=== PATIENT | male | born 1970 | race African-American/Black ===

== ENCOUNTER → 2018-11-03 | Outpatient (CLI) | payer OTHER ==
--- NOTE | 2018-11-03 09:43 | REP ---
Left elbow for views : There is no fracture or dislocation. Mineralization and joint spaces are normal. There are no calcifications or foreign bodies. Impression: Negative left elbow . Electronically Signed by Riki Almaraz MD 11/03/2018 09:34 A
== END ==
LOC: M RAD 08:58
PROVIDERS: ATTEND Surgery
DX: M25.522 Pain in left elbow (principal)

== ENCOUNTER → 2019-12-07 | Outpatient (CLI) | payer OTHER ==
--- NOTE | 2019-12-15 14:49 | REP ---
LUMBAR SPINE SERIES: 5-VIEWS HISTORY: Right flank pain. FINDINGS: Five views of the lumbar spine show preserved vertebral body heights and normal alignment. Disk spaces are maintained. Pedicles and posterior elements are intact. There is no evidence of spondylolysis or spondylolisthesis. There is minimal facet sclerosis and hypertrophy bilaterally at L5-S1. Sacrum and SI joints are intact. Psoas margins are symmetric. IMPRESSION: No acute abnormality. Mild osteoarthritic facet hypertrophy and sclerosis bilaterally at L5-S1. MTDD
--- NOTE | 2019-12-15 14:57 | REP ---
THORACIC SPINE RADIOGRAPHS: 3-VIEWS HISTORY: Right flank pain and radiculopathy. FINDINGS: Thoracic vertebral body heights are preserved. There is minimal discogenic spurring at the anterior aspect of the upper and mid thoracic spine. No fracture or collapse is seen. No bony destructive lesion is seen. Pedicles and posterior elements are intact. No paravertebral soft tissue mass is seen. IMPRESSION: Minimal discogenic spurring. Otherwise negative thoracic spine series. MTDD
--- NOTE | 2019-12-15 15:07 | REP ---
BILATERAL ANKLE SERIES: 8-VIEWS HISTORY: Bilateral pain. FINDINGS: Four views of each ankle are presented. There are Achilles calcaneal spurs bilaterally. Ankle mortise is intact. There is mild plantar calcaneal spurring on the right. No fracture or erosive changes seen on either side. Joint space is preserved. IMPRESSION: No acute bony abnormality. Calcaneal spurring noted bilaterally. MTDD
== END ==
LOC: M RAD 08:39
PROVIDERS: ATTEND Surgery
DX: M77.31 Calcaneal spur, right foot (principal); M77.32 Calcaneal spur, left foot; M47.817 Spondylosis without myelopathy or radiculopathy, lumbosacral region

== ENCOUNTER 2020-04-29 17:35 | Emergency (ER) | payer OTHER ==
--- NOTE | 2020-04-29 20:49 | REP ---
INDICATION: SOB COMPARISON: None. TECHNIQUE: Portable AP view of the chest FINDINGS: The mediastinum and cardiac silhouette are within normal limits for portable technique. The lung soriano are clear without acute consolidation, effusion, or pneumothorax. Skeletal structures are intact. IMPRESSION: No acute cardiopulmonary process appreciated. <Electronically signed by Bryan Parjapati > 04/29/20 [id number]
[2020-04-29 21:00] VITALS: BP 136/52
== END 2020-04-29 20:50 | disposition home or self-care (01) ==
LOC: EDBD 17:35 → M ED 17:35
DX: R06.02 Shortness of breath (principal); U07.1 COVID-19; Z88.0 Allergy status to penicillin; Z88.2 Allergy status to sulfonamides; Z88.1 Allergy status to other antibiotic agents; Z91.011 Allergy to milk products; Z91.018 Allergy to other foods